=== PATIENT | female | born 1965 | race Two or more races ===

== ENCOUNTER 2019-07-13 11:45 | Emergency (ER) | payer SELFPAY ==
[~2019-07-13] VITALS: Ht 157.5 cm; Wt 68.0 kg
--- NOTE | 2019-07-13 12:16 | PHYS DOC ---
Past Medical History Past Medical History: Depression Past Surgical History: No Surgical History Smoking: Cigarettes (The patient is a nonsmoker.) Alcohol Use: None Drug Use: None Adult General Chief Complaint Chief Complaint: CHEST PAIN HPI HPI Patient is a 53-year-old female from [facility], although [place] this [place], who presents to the emergency department for evaluation. She states that she has had a chronic cough, but over the past few days her cough worsened and she developed some gross hemoptysis yesterday. She has not had any fevers or chills. She reports pleuritic anterior chest pain, which is also reproducible with palpation, and denies any exertional chest discomfort. She does not take any anticoagulants. The patient has visited her primary care office in the past, at about 3 months ago was told that she had a lung problem, possibly a wound in her lung, and was given some medication to treat this although she is uncertain what the diagnosis was or what medication she took. There are no alleviating or exacerbating factors to her symptoms, except as noted above. Review of Systems Review of Systems Constitutional: Denies fever or chills. No weight loss. [] Eyes: Denies change in visual acuity, redness, or eye pain [] HENT: Denies nasal congestion or sore throat [] Respiratory: No additional information not addressed in HPI [] Cardiovascular: No additional information not addressed in HPI [] GI: Denies abdominal pain, nausea, vomiting, bloody stools or diarrhea [] : Denies dysuria or hematuria [] Musculoskeletal: Denies back pain or joint pain [] Integument: Denies rash or skin lesions [] Neurologic: Denies headache, focal weakness or sensory changes [] Endocrine: Denies polyuria or polydipsia [] All other systems were reviewed and found to be within normal limits, except as documented in this note. Current Medications Current Medications Current Medications Medications (Trade) Dose Ordered Sig/Michelle Start Time Stop Time Status Last Admin Dose Admin Info (CONTRAST GIVEN -- Rx MONITORING) 1 each PRN DAILY PRN 07/13/19 13:00 07/15/19 12:59 Iohexol (Omnipaque 350 Mg/ml) 90 ml 1X ONCE 07/13/19 13:30 07/13/19 13:31 07/13/19 13:01 80 ML Allergies Allergies Allergies Coded Allergies Type Severity Reaction Last Updated Verified No Known Drug Allergies 07/13/19 No Physical Exam Physical Exam PHYSICAL EXAM: CONSTITUTIONAL: Well developed, well nourished HEAD: normocephalic, atraumatic EENT: PERRL, EOMI. Conjunctivae normal color, sclerae non-icteric; moist mucous membranes. NECK: Supple, non-tender; no meningismus. LUNGS: Questionable scattered rhonchi, mild, in the right middle lung hopkins, otherwise Lungs CTA, breathing even and unlabored. Normal air movement. HEART: Regular rate and rhythm, no murmur CHEST: No deformity; palpation of the anterior chest wall reproduces the patient's pain. ABDOMEN: The abdomen is soft, and non-tender, no masses or bruits. EXTREM: Normal ROM; no deformity, no calf tenderness. Normal pulses palpable in all extremities. There is no pedal edema. SKIN: No rash; no diaphoresis NEURO: Alert; normal speech and cognition; CN's grossly intact; strength grossly intact without focal deficit. BACK: No CVA TTP. Current Patient Data Vital Signs Vital Signs Date Time Temp Pulse Resp B/P (MAP) Pulse Ox O2 Delivery O2 Flow Rate FiO2 07/13/19 11:55 97.5 62 17 142/64 (90) 100 Room Air 97.5 Lab Values Laboratory Tests Test 07/13/19 12:00 White Blood Count 8.6 x10^3/uL (4.0-11.0) Red Blood Count 5.20 x10^6/uL (3.50-5.40) Hemoglobin 14.5 g/dL (12.0-15.5) Hematocrit 43.1 % (36.0-47.0) Mean Corpuscular Volume 83 fL (79-100) Mean Corpuscular Hemoglobin 28 pg (25-35) Mean Corpuscular Hemoglobin Concent 34 g/dL (31-37) Red Cell Distribution Width 13.1 % (11.5-14.5) Platelet Count 299 x10^3/uL (140-400) Neutrophils (%) (Auto) 56 % (31-73) Lymphocytes (%) (Auto) 37 % (24-48) Monocytes (%) (Auto) 5 % (0-9) Eosinophils (%) (Auto) 2 % (0-3) Basophils (%) (Auto) 1 % (0-3) Neutrophils # (Auto) 4.8 x10^3/uL (1.8-7.7) Lymphocytes # (Auto) 3.2 x10^3/uL (1.0-4.8) Monocytes # (Auto) 0.5 x10^3/uL (0.0-1.1) Eosinophils # (Auto) 0.1 x10^3/uL (0.0-0.7) Basophils # (Auto) 0.1 x10^3/uL (0.0-0.2) Prothrombin Time 13.2 SEC (11.7-14.0) Prothrombin Time INR 1.0 (0.8-1.1) Activated Partial Thromboplast Time 28 SEC (24-38) Sodium Level 141 mmol/L (136-145) Potassium Level 3.6 mmol/L (3.5-5.1) Chloride Level 104 mmol/L (98-107) Carbon Dioxide Level 26 mmol/L (21-32) Anion Gap 11 (6-14) Blood Urea Nitrogen 10 mg/dL (7-20) Creatinine 1.1 mg/dL (0.6-1.0) H Estimated GFR (Cockcroft-Gault) 52.0 BUN/Creatinine Ratio 9 (6-20) Glucose Level 147 mg/dL (70-99) H Calcium Level 8.6 mg/dL (8.5-10.1) Total Bilirubin 0.5 mg/dL (0.2-1.0) Aspartate Amino Transferase (AST) 39 U/L (15-37) H Alanine Aminotransferase (ALT) 56 U/L (14-59) Alkaline Phosphatase 103 U/L (46-116) Troponin I Quantitative < 0.017 ng/mL (0.000-0.055) EN-Vtd-E-Type Natriuretic Peptide 35 pg/mL (0-124) Total Protein 8.6 g/dL (6.4-8.2) H Albumin 3.8 g/dL (3.4-5.0) Albumin/Globulin Ratio 0.8 (1.0-1.7) L Laboratory Tests 07/13/19 12:00 Laboratory Tests 07/13/19 12:00 EKG EKG []Normal sinus rhythm at a rate of 68 bpm, normal axis, incomplete right bundle- branch block with otherwise normal intervals, there are no acute ischemic ST/T changes. Radiology/Procedures Radiology/Procedures PROCEDURE: PORTABLE CHEST 1V PORTABLE CHEST 1V History: Shortness of breath, hemoptysis Comparison: None. Findings: Single view of the chest is submitted. There is patchy airspace opacity at the right lung base. There is no dependent pleural fluid or pneumothorax. Cardiac silhouette is within normal limits given technique. Impression: 1. There is patchy right base infiltrate/atelectasis.[] PROCEDURE: CT ANGIOGRAPHY CHEST CT ANGIOGRAPHY CHEST Indication: Chest pain, shortness of breath for one day. Coughing up blood. . Technique: After intravenous contrast administration, CT imaging was performed of the chest. MIP reconstructions were obtained. Exposure: One or more of the following individualized dose reduction techniques were utilized for this examination: 1. Automated exposure control 2. Adjustment of the mA and/or kV according to patient size 3. Use of iterative reconstruction technique. Comparison: None FINDINGS: No evidence of pulmonary embolism. Irregularity of the wall of the ascending aorta is thought to be due to pulsatility artifact, no definite aortic dissection. No evidence of aortic aneurysm. Proximal great vessels are patent. Right lobe of thyroid is larger than the left. Some low-density in the right thyroid but that could be artifactual. No significant lymph node enlargement. No evidence of pericardial effusion or pleural effusion. Mosaic attenuation of both lungs with areas of groundglass opacity. More focal infiltrate or consolidation in the right middle lobe. Trachea and mainstem bronchi are patent. Degenerative spondylosis, mild. Scans the upper abdomen are limited by technique. No definite acute abnormality. IMPRESSION: 1. No evidence of pulmonary embolism. 2. Infiltrate in the right middle lobe, could be pneumonia. 3. Mosaic attenuation of groundglass opacities throughout both lungs. This could also indicate inflammatory or infectious etiology. 4. Follow-up CT chest could be of benefit to document resolution of these findings. 5. Thyroid gland asymmetry, larger on the right. Thyroid ultrasound as an outpatient could evaluate for thyroid mass. Course & Med Decision Making Course & Med Decision Making Pertinent Labs and Imaging studies reviewed. (See chart for details) [] 1:30 PM: The patient's condition remains stable. I discussed test results in detail with the patient and her son, the importance of close pulmonary follow-up and return precautions. Dragon Disclaimer Dragon Disclaimer This electronic medical record was generated, in whole or in part, using a voice recognition dictation system. Departure Departure Impression: Primary Impression: Pneumonia Additional Impression: Hemoptysis Disposition: HOME, SELF-CARE Condition: STABLE Referrals: MARLIN MULLER MD Patient Instructions: Hemoptysis, Pneumonia, Adult Additional Instructions: Follow-up with pulmonology for further evaluation. Please call today to schedule a follow-up appointment. Further outpatient evaluation and imaging will be required of the CT findings today, both regarding your lungs, as well as a thyroid nodule/abnormality that was noted on the CT scan today. Please schedule an appointment with a primary care physician to help guide further outpatient follow-up and outpatient thyroid evaluation. Return to medical care for any new or worsening symptoms, development of increas ing trouble breathing, or any other concerning symptoms. Scripts Doxycycline Hyclate (DOXYCYCLINE HYCLATE) 100 Mg Tablet 1 TAB PO BID, #14 TAB Prov: VIRIDIANA BOLANOS MD 07/13/19 Problem Qualifiers VIRIDIANA BOLANOS MD Jul 13, 2019 12:16
--- NOTE | 2019-07-13 12:19 | EKG ---
[facility] [address] [place] [address] Test Date: 2019-07-13 Test Time: 11:53:35 Pat Name: MAK GARCIA Department: Room: Gender: F Product Responsibility Liaison: : 1965 Requested By: VIRIDIANA BOLANOS Order Number: [id number] Reading MD: Jose D Phillips MD Measurements Intervals [place] Rate: 68 P: 27 GA: 158 QRS: 45 QRSD: 92 T: 20 QT: 452 QTc: 486 Interpretive Statements SINUS RHYTHM Electronically Signed On 07-13-2019 13:27:37 [employer]ATCHER by Jose D Phillips MD
[2019-07-13 12:31] LABS: BASO # 0.1 x10^3/uL (0.0-0.2); BASO % 1 % (0-3); EOS # 0.1 x10^3/uL (0.0-0.7); EOS % 2 % (0-3); HEMATOCRIT 43.1 % (36.0-47.0); HEMOGLOBIN 14.5 g/dL (12.0-15.5); LYMPH # 3.2 x10^3/uL (1.0-4.8); LYMPH % 37 % (24-48); MEAN CORPUSCULAR HEMOGLOBIN 28 pg (25-35); MEAN CORPUSCULAR HGB CONC 34 g/dL (31-37); MEAN CORPUSCULAR VOLUME 83 fL (79-100); MONO # 0.5 x10^3/uL (0.0-1.1); MONO % 5 % (0-9); NEUT # 4.8 x10^3/uL (1.8-7.7); NEUT % 56 % (31-73); PLATELET COUNT 299 x10^3/uL (140-400); RED CELL DISTRIBUTION WIDTH 13.1 % (11.5-14.5); WHITE BLOOD COUNT 8.6 x10^3/uL (4.0-11.0)
[2019-07-13 12:35] LABS: CALCIUM 8.6 mg/dL (8.5-10.1); CREATININE 1.1 mg/dL (0.6-1.0); POTASSIUM 3.6 mmol/L (3.5-5.1)
--- NOTE | 2019-07-13 12:38 | RAD ---
PORTABLE CHEST 1V History: Shortness of breath, hemoptysis Comparison: None. Findings: Single view of the chest is submitted. There is patchy airspace opacity at the right lung base. There is no dependent pleural fluid or pneumothorax. Cardiac silhouette is within normal limits given technique. Impression: 1. There is patchy right base infiltrate/atelectasis. Electronically signed by: Carlos Braxton MD (07/13/2019 12:35 PM) [id number]
[2019-07-13 12:40] LABS: ALBUMIN 3.8 g/dL (3.4-5.0); ALBUMIN/GLOBULIN RATIO 0.8 (1.0-1.7); TOTAL BILIRUBIN 0.5 mg/dL (0.2-1.0); TOTAL PROTEIN 8.6 g/dL (6.4-8.2)
[2019-07-13 12:41] LABS: PROTHROMBIN TIME PATIENT 13.2 SEC (11.7-14.0)
[2019-07-13] MEDS ORDERED: CONTRAST GIVEN. MC PRN (13:00)
--- NOTE | 2019-07-13 13:20 | RAD ---
CT ANGIOGRAPHY CHEST Indication: Chest pain, shortness of breath for one day. Coughing up blood. . Technique: After intravenous contrast administration, CT imaging was performed of the chest. MIP reconstructions were obtained. Exposure: One or more of the following individualized dose reduction techniques were utilized for this examination: 1. Automated exposure control 2. Adjustment of the mA and/or kV according to patient size 3. Use of iterative reconstruction technique. Comparison: None FINDINGS: No evidence of pulmonary embolism. Irregularity of the wall of the ascending aorta is thought to be due to pulsatility artifact, no definite aortic dissection. No evidence of aortic aneurysm. Proximal great vessels are patent. Right lobe of thyroid is larger than the left. Some low-density in the right thyroid but that could be artifactual. No significant lymph node enlargement. No evidence of pericardial effusion or pleural effusion. Mosaic attenuation of both lungs with areas of groundglass opacity. More focal infiltrate or consolidation in the right middle lobe. Trachea and mainstem bronchi are patent. Degenerative spondylosis, mild. Scans the upper abdomen are limited by technique. No definite acute abnormality. IMPRESSION: 1. No evidence of pulmonary embolism. 2. Infiltrate in the right middle lobe, could be pneumonia. 3. Mosaic attenuation of groundglass opacities throughout both lungs. This could also indicate inflammatory or infectious etiology. 4. Follow-up CT chest could be of benefit to document resolution of these findings. 5. Thyroid gland asymmetry, larger on the right. Thyroid ultrasound as an outpatient could evaluate for thyroid mass. Electronically signed by: Sandeep Marie MD (07/13/2019 1:17 PM) [id number]
[2019-07-13] MEDS ORDERED: IOHEXOL 350 MG/ML 100 ML VIAL. IV ONE (13:30)
[2019-07-13] MEDS ORDERED: DOXY100T PO (13:33)
[2019-07-13 14:00] VITALS: BP 123/59
== END 2019-07-13 14:00 | disposition home or self-care (01) ==
LOC: ER 11:45
DX: J18.9 Pneumonia, unspecified organism (principal); R04.2 Hemoptysis; F32.9 Major depressive disorder, single episode, unspecified
CPT/HCPCS: 36415; 71045; 71275; 80053; 83880; 84484; 85025; 85610; 85730; 93005; 99285; Q9967